=== PATIENT | male | born 1985 | race African-American/Black ===

== ENCOUNTER 2017-08-29 17:00 | Emergency (ER) | payer SELFPAY | END 2017-08-29 21:05 | disposition home or self-care (01) | LOC: D.ER 17:00 | DX: L02.415 Cutaneous abscess of right lower limb (principal); F17.200 Nicotine dependence, unspecified, uncomplicated ==

== ENCOUNTER 2018-08-02 17:15 | Emergency (ER) | payer SELFPAY ==
[~2018-08-02] VITALS: Ht 185.4 cm; Wt 100.0 kg
[2018-08-02 17:22] VITALS: Ht 185.4 cm; Wt 100.0 kg
[2018-08-02] MEDS ORDERED: TORADOL10 MG PO (18:51)
[2018-08-02] MEDS ORDERED: VIBRAMYCIN 100100 MG PO (18:51)
[2018-08-02 19:20] VITALS: BP 126/88
[2018-08-04 21:08] LABS: CHLAMYDIA TRACHOMATIS, NAA Negative (Negative)
== END 2018-08-02 19:21 | disposition home or self-care (01) ==
LOC: D.ER 17:15
PROVIDERS: Emergency Medicine
DX: L02.416 Cutaneous abscess of left lower limb (principal); L02.31 Cutaneous abscess of buttock; Z72.51 High risk heterosexual behavior; F17.200 Nicotine dependence, unspecified, uncomplicated